=== PATIENT | female | born 1985 | race Hispanic/Latino ===

== ENCOUNTER 2017-01-04 00:04 | Emergency (ER) | payer OTHER ==
[2017-01-04 00:09] VITALS: TEMP 97.6; O2SAT 98
--- NOTE | 2017-01-04 01:11 | ED PDOC ---
HPI: Psych/Substance Abuse Time Seen by Provider: 01/04/17 00:15 Chief Complaint (Nursing): Alcohol Ingestion Chief Complaint (Provider): found on steps of residence, lying down and sleeping ED Caveat: Intoxicated, Uncooperative History Per: Patient History/Exam Limitations: intoxication Onset/Duration Of Symptoms: Hrs Current Symptoms Are (Timing): Still Present Suicide/Self Injury Attempted (Context): None Modifying Factor(s): Alcohol Severity: Moderate Associated Symptoms: Anger, Agitation Involuntary Hold By: None Additional History Per: EMS, Law Enforcement Additional Complaint(s): 31 y/o F brought in by EMS and law enforcement after she was found on front steps of house lying there sleeping with a visible bottle of wine next to her. Patient was agitated, angry and heard shouting at [place] [employer] officers and EMS. Able to walk into the ambulancew/o difficulty as per EMS. Crying, agitated and angry upon arrival to [facility] ER, demanding to leave and unwilling to change into hospital gown. Patient lives alone in [place]. States going through major life stressors. Demanding to have her phone charged so she can call a friend to pick her up. HPI and ROS limited due to intoxication. Denies LOC, head trauma, FERRARA, cp, SOB Past Medical History Vital Signs: Last Vital Signs Temp 97.6 F 01/04/17 00:07 Pulse 114 H 01/04/17 00:07 Resp 18 01/04/17 00:07 BP 150/94 H 01/04/17 00:07 Pulse Ox 98 01/04/17 00:07 - Family History Family History: States: Unknown Family Hx - Allergies Allergies/Adverse Reactions: Allergies Allergy/AdvReac Type Severity Reaction Status Date / Time No Known Allergies Allergy Verified 09/25/14 01:40 Review of Systems Constitutional: Negative for: Fever, Weakness Cardiovascular: Negative for: Chest Pain Gastrointestinal: Positive for: Nausea. Negative for: Vomiting, Abdominal Pain Physical Exam - Physical Exam Appears: Positive for: No Acute Distress Head Exam: Positive for: ATRAUMATIC, NORMOCEPHALIC Skin: Positive for: Warm, Dry Eye Exam: Positive for: EOMI Neck: Positive for: Painless ROM Cardiovascular/Chest: Positive for: Regular Rate, Rhythm Respiratory: Positive for: Normal Breath Sounds. Negative for: Stridor, Wheezing, Respiratory Distress Gastrointestinal/Abdominal: Positive for: Soft. Negative for: Tenderness - ECG O2 Sat by Pulse Oximetry: 98 - Progress ED Course And Treament: ETOH intoxication Accucheck , ETOH level - patient refuses Oriented to place, time and situation, ambulates with a steady gait sober friend by bedside who is willing to take patient home Vital signs stable Patient to be discharged with sober friend Re-evaluation Time: 01:27 Condition: Re-examined, Improved Disposition - Clinical Impression Clinical Impression: Alcohol abuse, Alcohol abuse with uncomplicated intoxication - Patient ED Disposition Is Patient to be Admitted: No - Disposition Disposition: Routine/Home Disposition Time: 01:27 Condition: IMPROVED Instructions: Abuse of Alcohol (ED), Alcohol Intoxication (ED) Print Language: [place]
[2017-01-04 04:38] VITALS: BP 141/68; PULSE 102; RESP 16
== END 2017-01-04 01:45 | disposition home or self-care (01) ==
LOC: H.ER 00:04
DX: F10.120 Alcohol abuse with intoxication, uncomplicated (principal)